=== PATIENT | male | born 1990 | race African-American/Black ===

== ENCOUNTER 2022-05-10 13:22 | Outpatient (CLI) | payer OTHER | END 2022-05-10 23:59 | disposition home or self-care (01) | LOC: LAB 13:22 | PROVIDERS: ATTEND Specialist | DX: Z01.812 Encounter for preprocedural laboratory examination (principal); Z20.822 Contact with and (suspected) exposure to COVID-19 | CPT/HCPCS: U0003; C9803 ==

== ENCOUNTER 2022-05-15 05:05 | Day surgery (SDC) | payer OTHER ==
[~2022-05-15] VITALS: Ht 177.8 cm; Wt 73.0 kg
--- NOTE | 2022-05-15 05:00 | NUR ---
MS RN ADMITTING NOTES PATIENT ARRIVED ON UNIT, AMBULATORY WITH STEADY GAIT; A/OX4, BREATHING EVEN AND UNLABORED; NO SOB NOTED; NO DISTRESS NOTED AT THIS TIME; PATIENT DENIES PAIN BUT VERBALIZES DISCOMFORT IN RIGHT SHOULDER WITH MOVEMENT; VSS; BELONGINGS CHECKED AT BEDSIDE, PER PATIENT DR. CABALLERO NEEDS HIM TO BRING SLING TO OR; L FOREARM #20G IV ACCESS; FLUSHES WELL; NO S/S OF REDNESS OR INFILTRATION NOTED; PATIENT ORIENTED TO STAFF AND TO UNIT; SAFETY PRECAUTIONS IMPLEMENTED; BED LOCKED IN LOW POSITION; SIDE RAILSX2, CALL LIGHT WITHIN EASY REACH; WILL ENDORSE FREEDOM TO ONCOMING SHIFT; AWAITING OR FOR BRISTLE MACHINE OPERATOR
[2022-05-15] MEDS ORDERED: ANESTHESIA TRAY IN PYXIS 1 EA TRAY MC ONE (06:16)
[2022-05-15] MEDS ORDERED: EPINEPHRINE (1:1000) 1 MG/ML AMPUL ONE (06:16)
[2022-05-15] MEDS ORDERED: methylPREDNISolone ACETATE 80 MG/ML VIAL ONE (06:17)
[2022-05-15] MEDS ORDERED: BUPIVACAINE 0.5 % PF 150 MG/30 ML VIAL ONE ×2 (06:17→06:37)
--- NOTE | 2022-05-15 06:17 | NUR ---
MS RN NOTES CONSENTS FOR PROCEDURE SIGNED AND FILED IN PATIENT CHART; OR ON UNIT FOR PATIENT TRANSMISSION MECHANIC
--- NOTE | 2022-05-15 06:25 | NUR ---
MS RN NOTE PATIENT WHEELED DOWN TO OR IN BED IN STABLE CONDITION WITH ACCOMPANIED BY OR STAFF
[2022-05-15] MEDS ORDERED: FENTANYL PF 100MCG/2ML AMPUL ONE (06:34)
[2022-05-15] MEDS ORDERED: MIDAZOLAM HCL 2 MG/2ML VIAL ONE (06:35)
[2022-05-15] MEDS ORDERED: HYDROMORPHONE INJ 2 MG/ML DISP.SYRIN ONE (06:35)
[2022-05-15] MEDS ORDERED: ROCURONIUM BROMIDE 50 MG/5 ML ONE (06:36)
[2022-05-15] MEDS ORDERED: FAMOTIDINE/PF INJ 20 MG/2 ML VIAL IV ONE (06:36)
--- NOTE | 2022-05-15 07:15 | NUR ---
MS RN OPENING NOTES RECEIVED REPORT FROM BLANKET WASHER NURSE, PATIENT CURRENTLY IN OR. WILL AWAIT REPORT FROM TRUCK CLEANER.
[2022-05-15] MEDS ORDERED: hydrALAZINE HCL IV 20 MG VIAL ONE (09:15)
[2022-05-15] MEDS ORDERED: HYDROCODONE/APAP 5/325MG TABLET PO PRN (09:30)
--- NOTE | 2022-05-15 10:09 | NUR ---
RN NOTES PATIENT RETURNED FROM OR ACCOMPANIED BY TWO RNs, BEDSIDE REPORT GIVEN, V/S TAKEN AND STABLE. WILL CONTINUE TO MONITOR.
[2022-05-15 10:10] VITALS: BP 146/91
[2022-05-15 10:27] VITALS: BP 146/91
--- NOTE | 2022-05-15 13:51 | NUR ---
RN NOTES PATIENT COMPLAINED OF PAIN 02/24, ADMINISTERED PRN NARCO. WILL CONTINUE TO MONITOR.
--- NOTE | 2022-05-15 14:21 | NUR ---
WINDOW SHADE RING SEWER NOTES PATIENT D/C HOME AFTER DAY SURGERY ON RIGHT SHOULDER. A/Ox4, ABLE TO MAKE NEEDS KNOWN. DRESSING INTACT, NO S/S OF DRAINAGE. DISCHARGE INSTRUCTIONS AND HEALTH TEACHINGS GIVEN TO PATIENT AND EXPLAINED. PATIENT VERBALIZED UNDERSTANDING. IV ACCESS REMOVED, PRESSURE DRESSING IN PLACE. ID BAND REMOVED. ABLE TO AMBULATE, NO S/S OF PAIN OR DISTRESS AT DISCHARGE. PATIENT LEFT UNIT AMBULATING WITH BROTHER AND RN, STEFF @[phone]. CHARGE NURSE AND MD AWARE OF DISCHARGE.
== END 2022-05-15 19:00 | disposition home or self-care (01) ==
LOC: DS 05:05 → MED 05:07 → UNDOADMIN 05:07 → UNDODISIN 14:20 → DS 19:00
PROVIDERS: ATTEND Specialist
DX: S43.401A Unspecified sprain of right shoulder joint, initial encounter (principal); S46.211A Strain of muscle, fascia and tendon of other parts of biceps, right arm, initial encounter; X58.XXXA Exposure to other specified factors, initial encounter; Y93.89 Activity, other specified; Y92.89 Other specified places as the place of occurrence of the external cause; Y99.8 Other external cause status; Z20.822 Contact with and (suspected) exposure to COVID-19; Z90.89 Acquired absence of other organs
CPT/HCPCS: 29806; 87081; 29828; J3490 ×2; J0171; J3010; J0360; J1170; C1713 ×2; J2250; A4217; G0378; J0690; J1040; J2405; J2704; J2765; J7030